=== PATIENT | female | born 1980 | race African-American/Black ===

== ENCOUNTER 2019-07-30 06:02 | Day surgery (SDC) | payer OTHER ==
[2019-07-26 12:36] LABS: Urine Appearance CLEAR; Urine Bilirubin NEGATIVE (NEG); Urine Blood NEGATIVE (NEG); Urine Color YELLOW; Urine Glucose NEGATIVE (NEG); Urine Protein NEGATIVE (NEG)
[2019-07-26 12:39] LABS: Absolute Lymphocytes (CBC) 3.3 K/uL (0.7-4.9); Basophils % 0.5 % (0-1.3); Hematocrit 35.8 % (36.0-45.0); Lymphocytes % 36.4 % (15.3-44.8); MPV 9.8 fL (7.6-11.3); RBC Red Blood Cell Count 3.91 M/uL (3.86-4.86)
[2019-07-26 13:07] LABS: Urine Microscopic Reflex NO UMIC
[2019-07-30] MEDS ORDERED: CEFAZOLIN/SWI 1gm 1 GM/10 ML SYR ONE ×2 (06:35→07:10)
[2019-07-30] MEDS ORDERED: NA CHLORIDE 0.9% 1,000 ML ONE (06:35)
[2019-07-30] MEDS ORDERED: CEFAZOLIN/SWI 2gm 2 GM/20 ML SYR ONE (06:35)
[2019-07-30 06:40] LABS: Specific Gravity 1.015 (1.005-1.030)
[2019-07-30] MEDS ORDERED: ROCURONIUM 50 MG/5 ML VIAL IV ONE ×2 (06:45→08:38)
[2019-07-30] MEDS ORDERED: ONDANSETRON 4 MG/2 ML VIAL ONE (06:45)
[2019-07-30] MEDS ORDERED: PROPOFOL 200 MG/20 ML VIAL IV ONE (06:45)
[2019-07-30] MEDS ORDERED: MIDAZOLAM HCL 2 MG/2 ML INJ ONE (06:45)
[2019-07-30] MEDS ORDERED: FENTANYL CITR 100 MCG/2 ML ONE ×2 (06:45→08:37)
[2019-07-30] MEDS ORDERED: LIDOCAINE 2% MPF 5 ML VIAL ONE (06:45)
[2019-07-30] MEDS ORDERED: VASOPRESSIN 20 UNIT/ML VIAL ONE (07:10)
[2019-07-30] MEDS ORDERED: NA CHLORIDE 0.9% 100 ML IV ONE (07:10)
[2019-07-30] MEDS ORDERED: LIDOCAINE 1% W/EPI 1:100,000 MDV 20 ML VIAL ONE (07:28)
[2019-07-30] MEDS ORDERED: NEOSTIGMINE 1 MG/ML -10 ML VIAL ONE (08:48)
[2019-07-30] MEDS ORDERED: GLYCOPYRROLATE 0.2 MG/ML SYR ONE (08:48)
[2019-07-30 09:15] VITALS: TEMP 97.7
[2019-07-30] MEDS ORDERED: MORPHINE 4 MG/ML SYR ONE (09:19)
[2019-07-30 09:35] VITALS: O2SAT 97
[2019-07-30] MEDS ORDERED: HYDROCODONE/APAP 5/325 MG TAB ONE (10:12)
[2019-07-30 11:29] VITALS: BP 123/73
--- NOTE | 2019-07-30 20:32 | OP ---
Date of Procedure: 07/30/2019 Surgeon: Carolynn Aparicio MD Vending Machine Collector: Leila Sanchez. Preoperative Diagnosis: Stress urinary incontinence. Postoperative Diagnosis: Stress urinary incontinence and incomplete uterovaginal prolapse anterior w all prolapse significant. Procedures Performed: Mid urethral sling, transobturator (TVT-O), cystoscopy. Anesthesia: General endotracheal. Estimated Blood Loss: Minimal. Urine Output: 100. Specimens: None. Complications: None. Drains: Calle catheter which will be removed in 2 hours postop for a voiding trial. Implants: TVTO. Findings: POP-Q 0, -1, 2, 0, -3, 5, moderate, 8, -2, -2, -4. Brief History And Physical: Patient is a 38-year-old lady who presented with stress urinary incontin ence. After discussing the prolapse finding of degenerative anterior wall prolapse as well as level 1 defect, we discussed the options of doing a sling along with repair or just sling alone. Patient w anted to proceed with the sling alone at this time. Kegel weight loss have all been reviewed. Sophia nt has tried that in the past and has not worked, so she was consented for mid urethral sling. Compl ications including bleeding, infection, injury to the bowel, bladder, and ureters, retention of urine , catheterization, revision of the sling, urinary retention was found, and groin pain were all discus sed with the patient and she was brought to the OR. Description Of Procedure: 3 g of Ancef were given. She was brought back to the OR, placed in supine fashion on the operating table, general anesthesia given, placed in a dorsal lithotomy position. Pe lvic exam performed and POP-Q as above as well. Vulva, vagina, and perineum were all prepped and renée ped in a sterile fashion. Calle was placed to drain the bladder and clamped and retracted superiorly . The mid urethral area was grasped with Allis clamps and dilute vasopressin 20 units and 50 cc of n ormal saline, 15 cc was injected in the midline as well on the sides. The skin markings were made ac cording to the package instructions on the groin. Then 1 cm of midline mid urethral incision was mad e on the vaginal epithelium, sub-epithelium and dissection was performed under it going at a 45 degre e angle to the horizontal and vertical planes. Dissection for this patient since she was heavy was s lightly less than 45, but right under the pubic bone entered the obturator space and once the membran e was perforated, the tips of the Metzenbaum were opened. On the opposite side similar dissection wa s performed and the track opened up. The wing guide was placed, spike was passed in the usual fashio n without any problems on both sides. The mesh was tensioned appropriately with the Metzenbaum sciss ors in the suburethral area and the sheaths were pulled out after the plastic dilators were cut. Aft er tensioning appropriately, the sling was trimmed very flush with the skin on both sides, then the s kin incisions in the groins were closed with 3-0 chromic. The irrigation and suction were performed on the sling with Ancef. Then, closure was performed with 3-0 Vicryl in a continuous running locked fashion in the suburethral area. Cystoscopy was performed after removing the Calle with a 30-degree lens. No evidence of any bladder perforation or foreign body. The bladder was well visualized and no evidence of any abnormalities. The bladder was drained, Calle was replaced. Patient was recovered from anesthesia. Instrument, nee dle, and sponge counts were correct at the end of the case. Patient tolerated the procedure well. S he will do a 2 hour postop voiding trial and then home without a catheter if she passes it. Follow up in 1 week. MELCHOR/DIANA Voice ID: [id number] Report ID: [id number]
== END 2019-07-30 13:40 | disposition home or self-care (01) ==
LOC: OR 06:02
PROVIDERS: ATTEND Obstetrics & Gynecology
PROC: 0TSD0ZZ Reposition Urethra, Open Approach (ICD-10-PCS; principal; 2019-07-30 07:30)
DX: N39.3 Stress incontinence (female) (male) (principal); N81.2 Incomplete uterovaginal prolapse; E11.65 Type 2 diabetes mellitus with hyperglycemia; I10 Essential (primary) hypertension; F32.9 Major depressive disorder, single episode, unspecified; E66.9 Obesity, unspecified; Z68.42 Body mass index [BMI] 45.0-49.9, adult; Z83.3 Family history of diabetes mellitus; Z82.3 Family history of stroke
CPT/HCPCS: 85025; 36415; 86900; 86850; 81025; 86901; 82962 ×2; 81003; 57288; J2704; J2710; J2250; J3010 ×2; J0690 ×3; J7030; J2405